=== PATIENT | male | born 1955 | race Caucasian/White ===

== ENCOUNTER 2018-09-07 17:48 | Inpatient (IN) | payer OTHER ==
[2018-09-07] MEDS ORDERED: SODIUM CHLORIDE 0.9% 1,000 ML IV ONE (18:18)
[2018-09-07] MEDS ORDERED: fentaNYL (PF) 50 MCG/ML 2 ML AMP IV ONE (18:23)
[2018-09-07] MEDS ORDERED: LIDOCAINE 1% INJ 10MG/ML (20 ML MDV) SQ ONE (18:23)
[2018-09-07] MEDS ORDERED: BIVALIRUDIN BOLUS 250 MG/50 ML IV ONE (18:33)
[2018-09-07] MEDS ORDERED: BIVALIRUDIN 250 MG in SODIUM CHLORIDE 0.9% 50 ML IV ONE ×2 (18:33→19:03)
[2018-09-07 18:54] LABS: Basophils % (A) 0 %; Eosinophils # (A) 0.1 k/uL (0-0.7); Eosinophils % (A) 0 %; HCT 41.5 % (39.0-53.0); Lymphocytes # (A) 1.2 k/uL (1.0-4.8); Lymphocytes % (A) 7 %; MCH 28.2 pg (25.0-35.0); MCHC 31.4 g/dL (31.0-37.0); Mean Platelet Volume 6.6; Monocytes # (A) 0.7 k/uL (0-1.0); Monocytes % (A) 4 %; Neutrophils # (A) 14.8 k/uL (1.3-7.7); Neutrophils % (A) 87 %; Platelet Count 307 k/uL (150-450); RBC 4.62 m/uL (4.30-5.90); RDW 13.1 % (11.5-15.5)
[2018-09-07 19:03] LABS: ALT 69 U/L (21-72); AST 58 U/L (17-59); Albumin 3.9 g/dL (3.5-5.0); Alkaline Phosphatase 80 U/L (38-126); Anion Gap 10 mmol/L; Blood Urea Nitrogen 24 mg/dL (9-20); Calcium 9.1 mg/dL (8.4-10.2); Carbon Dioxide 24 mmol/L (22-30); Chloride 102 mmol/L (98-107); Glucose 340 mg/dL (74-99); Potassium 4.6 mmol/L (3.5-5.1); Sodium 136 mmol/L (137-145); Total Bilirubin 0.6 mg/dL (0.2-1.3); Total Protein 6.7 g/dL (6.3-8.2)
[2018-09-07] MEDS ORDERED: IOPAMIDOL-370 100ML BTL INJ ONE (19:12)
[2018-09-07] MEDS ORDERED: IOPAMIDOL-370 125ML BTL INJ ONE (19:12)
[2018-09-07 19:15] LABS: Creatine Kinase MB 1.5 ng/mL (0.0-2.4)
[2018-09-07] MEDS ORDERED: IOPAMIDOL-300 50ML BTL INJ ONE (19:16)
[2018-09-07 19:29] LABS: Troponin I 0.035 ng/mL (0.000-0.034)
[2018-09-07] MEDS ORDERED: NITROGLYCERIN SL TABS 0.4 MG TAB SUBLINGUAL PRN (19:39)
[2018-09-07] MEDS ORDERED: RX INFO: IV CONTRAST WAS GIVEN 1 EACH MISC MISCELLANE PRN (19:39)
[2018-09-07] MEDS ORDERED: ATROPINE SULFATE 0.1 MG/ML 10ML SYRINGE IV PRN (19:39)
[2018-09-07] MEDS ORDERED: ZOLPIDEM 5 MG TAB PO PRN (19:39)
[2018-09-07] MEDS ORDERED: MAG HYDROX/AL HYDROX/SIMETH 30 ML CUP PO PRN (19:39)
[2018-09-07] MEDS ORDERED: SODIUM CHLORIDE 0.9% 1,000 ML IV SCH (19:45)
--- NOTE | 2018-09-07 20:09 | CONS ---
CONSULTATION Mr. Multani is a 62-year-old male who was transferred from [facility] with evidence of inferior wall myocardial infarction. Patient has a history of pre diabetes and a history of coronary artery disease according to him by cardiac catheterization about 10 years ago. It has been stable and today has severe jaw discomfort. Came into the emergency room at [facility] and was found to have ST-segment elevation inferiorly with evidence of complete heart block and ventricle rate of 46. The patient on presentation to the cardiac catheterization laboratory at [facility] still has some discomfort although better. He has some dyspnea. He was diaphoretic but no syncope. He denies any prior history of myocardial infarction or congestive heart failure. He has occasional peripheral edema. No PND, no orthopnea. He is reasonably active physically without any difficulty. His coronary risk factors are remarkable for the history of pre diabetes. He is a nonsmoker. No document hypertension. He has a remote history of paroxysmal atrial fibrillation. MEDICATION: At home are none. REVIEW OF SYSTEMS: RESPIRATORY: No documented history of asthma, emphysema or bronchitis. GI: No recent GI bleed. No peptic ulcer disease : No dysuria or hematuria. NERVOUS SYSTEM: No stroke or seizure. PHYSICAL EXAMINATION: He is a 62-year-old male, alert, oriented, no apparent distress. Heart rate running in the 50s. HEAD: Normocephalic. EYES: Sclerae anicteric. NECK: Good carotid upstroke. No bruit. No jugular venous distention. LUNGS: Clear to auscultation anteriorly. HEART: Regular rate and rhythm, S1, S2 with no rub or gallop. ABDOMEN: Soft, nontender. Positive bowel sounds. No megaly. EXTREMITIES: No edema. Intact distal pulses. EKG revealed sinus mechanism with complete heart block and ST-segment elevation in the inferior leads and lead 2, 3, AVF and ST-segment depression in lead in 1 and aVL as well as the anterior precordial leads. IMPRESSION: 1. Acute inferior wall myocardial infarction complicated by complete heart block. 2. Prediabetic state. RECOMMENDATION: I recommend proceeding with emergent cardiac catheterization. The procedure, it 's risks and complication were discussed with the patient who is in full understanding and agreement. Thank you for this consult, will follow with you. CORBYODL / IJN: [id number] / [facility] HOSPITALAakash
[2018-09-07 20:12] LABS: Glucose,Whole Blood 303 mg/dL (75-99)
[2018-09-07] MEDS ORDERED: MELATONIN 3 MG TABLET PO PRN (21:58)
[2018-09-07] MEDS ORDERED: ALPRAZolam 0.25 MG TAB PO PRN (21:58)
[2018-09-07] MEDS ORDERED: ACETAMINOPHEN TAB 500 MG TAB PO PRN (21:58)
[2018-09-07] MEDS ORDERED: HYDROcodone/APAP 5-325MG 1 EACH TAB PO PRN (21:58)
[2018-09-07 23:01] LABS: Glucose,Whole Blood 309 mg/dL (75-99)
[2018-09-07] MEDS: TICAGRELOR 90 MG TAB PO SCH (23:09)
[2018-09-07] MEDS: INSULIN ASPART 100 UNIT/ML 1 ML 10 ML VIAL SQ SCH (23:09)
[2018-09-07] MEDS: ATORVASTATIN 80 MG TAB PO SCH (23:09)
[2018-09-07 23:13] LABS: ALT 67 U/L (21-72); AST 119 U/L (17-59); Albumin 3.8 g/dL (3.5-5.0); Alkaline Phosphatase 69 U/L (38-126); Anion Gap 9 mmol/L; Blood Urea Nitrogen 23 mg/dL (9-20); Calcium 9.2 mg/dL (8.4-10.2); Carbon Dioxide 25 mmol/L (22-30); Chloride 103 mmol/L (98-107); Glucose 317 mg/dL (74-99); Potassium 4.8 mmol/L (3.5-5.1); Sodium 137 mmol/L (137-145); Total Bilirubin 0.6 mg/dL (0.2-1.3); Total Protein 6.4 g/dL (6.3-8.2)
[2018-09-08 06:05] LABS: Basophils % (A) 0 %; Eosinophils % (A) 0 %; HCT 38.5 % (39.0-53.0); Lymphocytes # (A) 1.2 k/uL (1.0-4.8); Lymphocytes % (A) 13 %; MCH 28.4 pg (25.0-35.0); MCHC 31.1 g/dL (31.0-37.0); MCV 91.3 fL (80.0-100.0); Mean Platelet Volume 6.5; Monocytes # (A) 0.7 k/uL (0-1.0); Monocytes % (A) 7 %; Neutrophils # (A) 7.3 k/uL (1.3-7.7); Neutrophils % (A) 77 %; Platelet Count 253 k/uL (150-450); RBC 4.22 m/uL (4.30-5.90); RDW 13.1 % (11.5-15.5); WBC 9.5 k/uL (3.8-10.6)
[2018-09-08 06:18] LABS: Anion Gap 7 mmol/L; Blood Urea Nitrogen 25 mg/dL (9-20); Calcium 9.1 mg/dL (8.4-10.2); Carbon Dioxide 25 mmol/L (22-30); Chloride 106 mmol/L (98-107); Cholesterol 188 mg/dL (<200); Glucose 241 mg/dL (74-99); HDL Cholesterol 58 mg/dL (40-60); LDL Cholesterol,Calculated 119 mg/dL (0-99); Magnesium 2.1 mg/dL (1.6-2.3); Potassium 4.8 mmol/L (3.5-5.1); Sodium 138 mmol/L (137-145); Triglycerides 56 mg/dL (<150)
[2018-09-08 07:31] LABS: Glucose,Whole Blood 222 mg/dL (75-99)
[2018-09-08] MEDS: TICAGRELOR 90 MG TAB PO SCH ×2 (08:14→22:06)
[2018-09-08] MEDS: INSULIN ASPART 100 UNIT/ML 1 ML 10 ML VIAL SQ SCH ×4 (08:14→22:05)
[2018-09-08] MEDS: PANTOPRAZOLE 40 MG TABLET PO SCH (08:14)
[2018-09-08] MEDS: ASPIRIN 81 MG PO SCH (08:14)
--- NOTE | 2018-09-08 09:10 | HP ---
HISTORY AND PHYSICAL DATE OF SERVICE: 09/07/2018. CHIEF COMPLAINT: Jaw pain and as well as headache and inferior myocardial infarction. HISTORY OF PRESENT ILLNESS: This 62-year-old gentleman with a past medical history of apparent atrial fibrillation, and diabetes mellitus was not taking medications at this time. The patient being followed by Dr. Huang in the outpatient setting. Today, the patient was also taking wood to the basement and patient was walking, the patient felt headache, dizzy, patient passed out. The patient was taken to [facility] and was found to have hyperacute inferior wall myocardial infarction with ST-T changes and as well as AV dissociation. Patient transferred to [facility] and Dr. Gold performed a cardiac catheterization and as well as well as stenting of the RCA. Patient being closely monitored in ICU at this time. Sugar is elevated at 303. There is no history of fever, rigors or chills. No history of headache, loss of consciousness, seizures. PAST MEDICAL HISTORY: History of diabetes, apparent atrial fibrillation. MEDICATIONS: Prior to admission: 1. Multivitamins 1 p.o. daily. 2. [place]-3 fish oil 1 p.o. daily. 3. Aspirin 81 mg. ALLERGIES: None. FAMILY HISTORY: History of coronary artery disease in the family. Multiple members in the family including brother. SOCIAL HISTORY: No history of smoking, no history of alcohol intake. REVIEW OF SYSTEMS: ENT: No diminished vision. No diminished hearing. Cardiovascular: As mentioned earlier. RESPIRATORY: As mentioned earlier. GI no nausea or vomiting. : No dysuria. NERVOUS SYSTEM: No numbness or weakness. ALLERGY/IMMUNOLOGY: No asthma or hayfever. MUSCULOSKELETAL: As mentioned earlier. HEMATOLOGY/ONCOLOGY: No history of anemia. ENDOCRINE: As mentioned earlier. CONSTITUTIONAL: As mentioned earlier. Dermatology: Negative. Rheumatology: Negative. Psychiatry: As mentioned earlier. PHYSICAL EXAMINATION: GENERAL: The patient is alert and oriented times three. VITAL SIGNS: Pulse is 80, blood pressure is 103/60. Respiration 21, temperature 98.2, pulse ox 98% on 2 L. HEENT is conjunctivae normal. Oral mucosa moist. Neck is no jugular venous distention. No carotid bruit. No lymph node enlargement. CARDIOVASCULAR SYSTEM: S1, S2 muffled. RESPIRATORY: Breath sounds diminished in the bases. No rhonchi. No crackles. Abdomen is soft, obese, nontender. No mass palpable. LEGS: No edema. No swelling. NERVOUS SYSTEM: Higher functions as mentioned earlier. Moves all 4 limbs. No focal motor or sensory deficits. Lymphatics: No lymph nodes palpable in the neck, axillae or groin. SKIN: No ulcer, rash, bleeding. JOINTS: No active deforming arthropathy. LABS: WBC 17, hemoglobin 13, sodium 136 and BUN is 24. Glucose 340. Troponin 0.035. ASSESSMENT: 1. Acute ST-segment elevation inferior myocardial infarction status post cardiac catheterization and RCA stenting. 2. Complete heart block and AV dissociation present on admission. 3. Hyponatremia. 4. Diabetes mellitus type 2, uncontrolled with hyperglycemia. 5. Increased WBC, possibly reactive. 6. History of atrial fibrillation. RECOMMENDATIONS AND DISCUSSION: In this 62-year-old gentleman who presented with multiple complex medical issues, we will monitor the patient closely, continue the current medications, management and symptomatic treatment. We will closely follow with Cardiology, beta blockers, dual antiplatelet treatment. Monitor Accu-Cheks a.c. and q.h.s. Otherwise, proton pump inhibitors. DVT prophylaxis. Prognosis guarded because of multiple complex medical issues. Also recommend the patient follow with Dr. Huang closely in the outpatient setting. Further recommendations to follow. A copy of dictation being forwarded to Dr. Huang who is the primary physician. Closely follow with Cardiology. Overall prognosis guarded. See orders for details. MMODL / IJN: [id number] /
--- NOTE | 2018-09-08 09:48 | CC ---
CARDIAC CATHETERIZATION REPORT INDICATIONS: Mr. Multani is a 62-year-old male who presented to the emergency room through this hospital with an acute inferior myocardial infarction and complete heart block. He was transferred to [facility] to undergo coronary angiography. The procedure, risks and complications were discussed with the patient who is in full understanding and agreement. PROCEDURE: Patient was brought to pathology laboratory aides teacher. He was draped and prepped in customary fashion. He received sedation in the form of fentanyl and Benadryl. After achieving moderate conscious sedated state, using Xylocaine anesthesia and Seldinger technique, a 6-Maltese sheath was introduced in the right femoral artery and a 6-Maltese sheath in the right femoral vein. A 5-Maltese temporary pacemaker was introduced, positioned in place. Pacing parameters were obtained. Following that, selective right coronary angiography was performed using 6-Maltese FR4 guiding catheter. After performing angioplasty and stenting, images of the left coronary system using a 6-Maltese left Deirdre catheter were performed. Following that, 6-Maltese tight pigtail catheter was introduced in the left ventricle and a 30 degree NAIR view of the left ventricle was obtained. Following that, catheter and sheath were removed. Hemostasis was obtained with deployment of an Angio-Seal. Venous sheath was sutured in place. The temporary pacemaker was removed. There was no immediate complication. FINDINGS: 1. LEFT MAIN: This is a short size vessel, bifurcating in left circumflex and left anterior descending artery. Left main coronary artery has no evidence of high- grade stenosis. 2. LEFT ANTERIOR DESCENDING ARTERY: This is a large-sized vessel, reaching to the apex, with a wraparound the apex segment. The left anterior descending artery in the mid segment has a 90% stenosis. The rest of the vessel has no high-grade stenosis. 3. LEFT CIRCUMFLEX: This is a nondominant vessel, giving rise to a large obtuse marginal branch. The obtuse marginal branch in mid segment has an 80% stenosis. The rest of the vessel has no high-grade stenosis. 4. RIGHT CORONARY ARTERY: This vessel is totally occluded proximally with no antegrade flow. 5. LEFT VENTRICULOGRAM: Left ventriculogram was performed in 30 degree NAIR view and revealed mild inferior wall hypokinesis. The ejection fraction was estimated at 45% to 50%. There was no significant mitral regurgitation. HEMODYNAMICS: There was no gradient across the aortic valve. The left ventricle end-diastolic pressure was 60 mmHg. CONCLUSION: 1. Acutely occluded proximal right coronary artery. 2. Significant disease in the LAD and the left circumflex. 3. Minimally impaired left ventricular systolic function. RECOMMENDATIONS: In view of finding of anatomy, recommend proceeding with angioplasty and stenting of the right coronary artery. The procedure as well as the risks and complications were discussed with the patient who was in full understanding and agreement. MMJERRI / MONROE: [id number] /
--- NOTE | 2018-09-08 09:55 | PTCA ---
PERCUTANEOUSTRANS CORORONARY ANGIOGRAPHY INDICATIONS: Mr. Multani is a 62-year-old male who presented with an acute inferior wall myocardial infarction to [facility], complicated by complete heart block. He was brought emergently to undergo coronary angiography and angioplasty and angioplasty and stenting. Coronary angiography was performed and recommendations made regarding angioplasty and stenting. The procedure as well as the risks and complications were discussed with the patient who was in full understanding and agreement. PROCEDURE: Using 6-Turkmen FR4 guiding catheter and after cannulating the right coronary ostium, a 0.014 balanced medium weight J-wire was advanced across the lesion. A 2.5 x 12 mm Trek balloon attempted to cross the total occlusion were unsuccessful. At that point, the wire was exchanged to a Whisper 0.014 J wire which was successful in crossing the lesion after positioning the wire distally. The balloon was advanced and 2 inflations at 8 atmospheres was done. Following that, the balloon was removed and a 3.5 x 50 mm Xience Mora stent was deployed, post-dilated 16 atmospheres. Following that the balloon was removed and a 4.0 x 12 mm NC Trek balloon was advanced and one inflation at 12 atmospheres was done. Following that the balloon was removed and a 3.0 x 18 mm Xience Mora stent was advanced to the distal lesion, deployed, and postdilated 16 atmospheres. After the last inflation, after appropriate wait, the balloon and the guidewire were withdrawn back in the guiding catheter. Images were obtained and repeated. Those images revealed stable successful stenting. At that point, angiography of the left coronary system as well as left ventriculogram was performed. Following that, catheter and sheath were removed. Hemostasis was obtained with deployment of an Angio-Seal. The complete heart block, resolved. The temporary pacemaker was removed and the venous sheath was sutured in place. At the end procedure, his symptoms had resolved. His EKG changes have improved. Of note, the patient received Angiomax per protocol as well as oral loading dose of Brilinta in the emergency room. RESULTS: 1. Successful stenting of the proximal right coronary artery with reduction of stenosis from 100% to 0%. 2. Successful stenting of the distal right coronary artery with reduction of stenosis from 70% to 0%. RECOMMENDATIONS: Patient will be continued on aspirin, Brilinta, and statin. Depending on his blood pressure and heart rate, VITALIY inhibitor and beta blockers will be added to his regimen. He will be evaluated to undergo staged stenting our staged revascularization of his LAD and the left circumflex. Those findings and recommendations were discussed with the patient his family who are in full understanding and agreement. DURATION OF PROCEDURE: 61 minutes. CK / MONROE: [id number] /
[2018-09-08 12:03] LABS: Glucose,Whole Blood 214 mg/dL (75-99)
[2018-09-08] MEDS: MULTIVITAMINS, THERA 1 EACH TAB PO SCH (12:42)
[2018-09-08] MEDS: SODIUM CHLORIDE 0.9% 1,000 ML IV SCH (15:00)
[2018-09-08] MEDS ORDERED: INSULIN DETEMIR 100 UNIT/ML 10 ML VIAL SQ SCH (15:00)
[2018-09-08] MEDS: INSULIN DETEMIR 100 UNIT/ML 10 ML VIAL SQ SCH (17:07)
[2018-09-08 17:14] LABS: Glucose,Whole Blood 177 mg/dL (75-99)
--- NOTE | 2018-09-08 19:14 | XR ---
EXAMINATION TYPE: XR chest 1V portable DATE OF EXAM: 09/08/2018 COMPARISON: NONE HISTORY: Heart failure chest pain TECHNIQUE: Single frontal view of the chest is obtained. FINDINGS: Heart and mediastinum are normal. Lungs are clear. Diaphragm is normal. There are chest le ads. Bony thorax is intact. IMPRESSION: No active cardiopulmonary disease. No heart failure.
--- NOTE | 2018-09-08 19:16 | PN ---
PROGRESS NOTE DATE OF SERVICE: 09/08/2018 This 62-year-old gentleman admitted with acute ST segment elevation myocardial infarction. The patient being closely monitored. Patient had cardiac cath and stenting of the RCA. Further stenting has been planned by the Cardiology soon. No chest pain. No palpitations. Patient closely monitored in ICU. Blood sugars elevated. PAST MEDICAL HISTORY: Reviewed. REVIEW OF SYSTEMS: CARDIOVASCULAR: As mentioned earlier. RESPIRATORY: As mentioned earlier. GI no nausea or vomiting. no dysuria. NERVOUS SYSTEM: No numbness, weakness. CURRENT MEDICATIONS ARE: Reviewed and include: 1. Tylenol 500 mg q.6h. 2. [place] 5 mg q.6h p.r.n. 3. Maalox 30 mL q.4 p.r.n. 4. Xanax 0.5 t.i.d. 5. Aspirin 81 mg. 6. Lipitor 80 mg q.h.s. 7. Atropine p.r.n. 8. Levemir 15 units daily. 9. Melatonin 3 mg p.r.n. 10.Multivitamins 1 p.o. daily. 11.Nitrostat p.r.n. 12.Protonix 40 mg. 13.Brilinta 90 mg b.i.d. 14.Ambien 5 mg q.h.s. p.r.n. PHYSICAL EXAMINATION: GENERAL: Alert, oriented x3. VITAL SIGNS: Pulse 70, blood pressure is 130/64. Respiration 34, temperature is 98 degrees, pulse ox 94% on room air. HEENT: Conjunctivae normal. NECK: No jugular venous distention. CARDIOVASCULAR: S1, S2 muffled. RESPIRATORY: Breath sounds diminished in the bases. A few scattered rhonchi. ABDOMEN: Soft, nontender. LEGS: No edema, no swelling. CENTRAL NERVOUS SYSTEM: No focal deficits. LABS: WBC 9.1, hemoglobin is 12, Accu-Cheks 222, 214. Troponin 63.7. LDL noted. ASSESSMENT: 1. Acute ST segment elevation inferior myocardial infarction, status post cardiac catheterization, RCA stenting. 2. Complete heart block with AV dissociation present on admission. 3. Hyponatremia. 4. Diabetes mellitus type 2, uncontrolled with hyperglycemia. 5. Increased WBC possibly reactive. 6. History of atrial fibrillation. RECOMMENDATIONS AND DISCUSSION: Recommend to continue current medications, monitor and symptomatic treatment. Otherwise, at this time, I recommend continue with antiplatelet agents. Continue with beta blockers. Monitor blood sugars closely. Levemir 15 units subcu daily and Accu- Cheks a.c. and q.h.s. importance of monitor the blood sugars also impressed with the patient. Otherwise, continue rest of medications. Closely follow with Cardiology. Further stenting with Cardiology. Prognosis guarded. Further recommendations to follow. I would also recommend incentive spirometry and also portable chest x- ray also to complete the workup. Further recommendations to follow. MMODL / IJN: [id number] / MTDD
[2018-09-08] MEDS: ATORVASTATIN 80 MG TAB PO SCH (22:06)
[2018-09-08 22:11] LABS: Glucose,Whole Blood 207 mg/dL (75-99)
[2018-09-09 04:50] LABS: Basophils % (A) 0 %; Eosinophils # (A) 0.1 k/uL (0-0.7); Eosinophils % (A) 1 %; HGB 11.7 gm/dL (13.0-17.5); Lymphocytes # (A) 1.5 k/uL (1.0-4.8); Lymphocytes % (A) 18 %; MCH 28.3 pg (25.0-35.0); MCHC 31.6 g/dL (31.0-37.0); MCV 89.6 fL (80.0-100.0); Mean Platelet Volume 6.9; Monocytes # (A) 0.6 k/uL (0-1.0); Monocytes % (A) 7 %; Neutrophils % (A) 72 %; Platelet Count 213 k/uL (150-450); RBC 4.13 m/uL (4.30-5.90); RDW 13.1 % (11.5-15.5); WBC 8.3 k/uL (3.8-10.6)
[2018-09-09 05:04] LABS: Anion Gap 4 mmol/L; Blood Urea Nitrogen 20 mg/dL (9-20); Calcium 8.7 mg/dL (8.4-10.2); Carbon Dioxide 26 mmol/L (22-30); Chloride 108 mmol/L (98-107); Glucose 179 mg/dL (74-99); Sodium 138 mmol/L (137-145)
[2018-09-09] MEDS: SODIUM CHLORIDE 0.9% 1,000 ML IV SCH (07:06)
[2018-09-09] MEDS: INSULIN ASPART 100 UNIT/ML 1 ML 10 ML VIAL SQ SCH ×4 (07:10→20:50)
[2018-09-09 07:13] LABS: Glucose,Whole Blood 173 mg/dL (75-99)
[2018-09-09] MEDS ORDERED: SODIUM CHLORIDE 0.9% 1,000 ML in EMPTY BAG 1 BAG IV ONE (07:25)
[2018-09-09] MEDS ORDERED: ALPRAZolam 0.25 MG TAB PO PRN (07:25)
[2018-09-09] MEDS ORDERED: ALPRAZolam 0.5 MG TAB PO PRN (07:25)
[2018-09-09] MEDS ORDERED: NITROGLYCERIN SL TABS 0.4 MG TAB SUBLINGUAL PRN (07:25)
[2018-09-09] MEDS: ASPIRIN 81 MG PO SCH ×2 (07:39→09:22)
[2018-09-09] MEDS: ATORVASTATIN 80 MG TAB PO SCH ×2 (07:39→20:45)
[2018-09-09] MEDS: TICAGRELOR 90 MG TAB PO SCH ×2 (09:22→20:46)
[2018-09-09] MEDS: PANTOPRAZOLE 40 MG TABLET PO SCH (09:22)
[2018-09-09] MEDS: METOPROLOL TARTRATE 25 MG TAB PO SCH ×2 (09:23→20:46)
[2018-09-09] MEDS: INSULIN DETEMIR 100 UNIT/ML 10 ML VIAL SQ SCH (09:28)
[2018-09-09 11:44] LABS: Hemoglobin A1C 10.9 % (4.0-6.0)
[2018-09-09 12:21] LABS: Glucose,Whole Blood 191 mg/dL (75-99)
[2018-09-09] MEDS: MULTIVITAMINS, THERA 1 EACH TAB PO SCH (13:11)
--- NOTE | 2018-09-09 15:07 | PN ---
PROGRESS NOTE Raulito is admitted to hospital with acute inferior wall myocardial infarction. This morning he is doing well. Vital signs are stable. There is no jugular venous distention. Chest exam reveals good air entry bilaterally. Heart exam reveals first and second heart sounds. No gallop. Exam of extremities did not reveal any edema. Labs show a hemoglobin of 11.7, platelet count is 213. Trop is elevated at 61, creatinine 0.78. The patient is currently on aspirin, Lipitor, Lopressor and Brilinta. ASSESSMENT: Acute inferior wall myocardial infarction status post catheterization and angioplasty of [place] right coronary artery. The patient also has significant disease in the LAD and circumflex coronary artery. The patient will undergo angioplasty with stenting of LAD tomorrow. He is currently on optimal medical therapy. He is stable to be transferred to [facility]. MMODL / IJN: [id number] /
[2018-09-09 15:21] VITALS: BMI 33.6
--- NOTE | 2018-09-09 16:07 | PN ---
PROGRESS NOTE This patient's electronic medical records, charts, lab tests, and vital signs reviewed. Patient is status post inferior wall myocardial infarction with a stent to the RCA. Patient also has a significant disease in the LAD and circumflex coronary artery. The patient is comfortable. His heart rate is 50 beats per minute blood pressure is 102/74 mmHg. First and second heart sounds are normal. Lungs are clinically clear to auscultation and percussion. The patient's maximum troponin was 61. Electrolytes were normal. FINAL IMPRESSION: This patient is status post inferior wall myocardial infarction. He will have echocardiogram tomorrow. We will give him IV fluids at 75 mL/hour. Subsequently discussed with Dr. Gold regarding the stent to the LAD and circumflex coronary artery. MMODL / IJN: [id number] /
[2018-09-09 17:11] LABS: Glucose,Whole Blood 196 mg/dL (75-99)
[2018-09-09 17:12] LABS: Potassium 4.3 mmol/L (3.5-5.1)
[2018-09-09 17:13] LABS: Magnesium 1.8 mg/dL (1.6-2.3)
--- NOTE | 2018-09-09 19:17 | PN ---
PROGRESS NOTE DATE OF SERVICE: 09/09/2018 62-year-old gentleman who was admitted after acute ST segment myocardial infarction, underwent cardiac catheterization, stenting of the RCA. The patient is awaiting for the procedure by Cardiology. No chest pain. No palpitations. No fever. EXAM: Alert and oriented times three. Pulse 70. Blood pressure 130/70, respiratory 14, temperature 98.1, pulse ox 96% on room air. HEENT: Conjunctivae normal. NECK: No jugular venous distention. Cardiovascular: S1, S2 muffled. RESPIRATIONS: Breath sounds diminished at the bases. No rhonchi. No crackles. Abdomen is soft, nontender. Legs are no edema. No swelling. CENTRAL NERVOUS SYSTEM: No focal deficits. LAB STUDIES: WBC 8.2, hemoglobin 11.7, glucose 196. ASSESSMENT: 1. Acute ST-segment elevation inferior wall myocardial infarction status post cardiac catheterization, RCA stenting. 2. Complete heart block with AV dissociation, present on admission. 3. Hyponatremia. 4. Diabetes mellitus type 2, uncontrolled with hyperglycemia. 5. Increased WBC, possibly reactive. 6. History of atrial fibrillation. RECOMMENDATIONS AND DISCUSSION: Recommend to continue current medications. Continue with monitoring, symptomatic treatment. Otherwise, at this time, I would continue with antiplatelet agents. I would increase the Levemir to 20 units and we will continue to monitor. Hemoglobin A1c is elevated up to 10. The patient may have to be on a short course of insulin after discharge. We will closely follow with Cardiology with further procedures. Further recommendations to follow. CK / DARINN: [id number] /
[2018-09-09 21:00] LABS: Glucose,Whole Blood 158 mg/dL (75-99)
[2018-09-10 05:16] LABS: Basophils % (A) 0 %; Eosinophils # (A) 0.1 k/uL (0-0.7); Eosinophils % (A) 1 %; HCT 35.9 % (39.0-53.0); HGB 12.1 gm/dL (13.0-17.5); Lymphocytes # (A) 1.5 k/uL (1.0-4.8); Lymphocytes % (A) 18 %; MCH 29.8 pg (25.0-35.0); MCHC 33.9 g/dL (31.0-37.0); MCV 88.1 fL (80.0-100.0); Mean Platelet Volume 6.8; Monocytes # (A) 0.6 k/uL (0-1.0); Monocytes % (A) 7 %; Neutrophils # (A) 6.1 k/uL (1.3-7.7); Neutrophils % (A) 71 %; Platelet Count 198 k/uL (150-450); RBC 4.07 m/uL (4.30-5.90); RDW 13.2 % (11.5-15.5); WBC 8.6 k/uL (3.8-10.6)
[2018-09-10 05:22] LABS: Prothrombin Time 10.6 sec (9.0-12.0)
[2018-09-10 05:28] LABS: Anion Gap 5 mmol/L; Blood Urea Nitrogen 17 mg/dL (9-20); Calcium 8.7 mg/dL (8.4-10.2); Carbon Dioxide 26 mmol/L (22-30); Chloride 108 mmol/L (98-107); Glucose 155 mg/dL (74-99); Potassium 4.1 mmol/L (3.5-5.1); Sodium 139 mmol/L (137-145)
[2018-09-10] MEDS ORDERED: ASPIRIN 81 MG PO ONE (06:00)
[2018-09-10] MEDS ORDERED: ATORVASTATIN 80 MG TAB PO ONE (06:00)
[2018-09-10] MEDS: PANTOPRAZOLE 40 MG TABLET PO SCH (06:32)
[2018-09-10 07:17] LABS: Glucose,Whole Blood 170 mg/dL (75-99)
[2018-09-10] MEDS: INSULIN ASPART 100 UNIT/ML 1 ML 10 ML VIAL SQ SCH ×4 (08:18→20:56)
[2018-09-10] MEDS: TICAGRELOR 90 MG TAB PO SCH ×2 (08:36→21:00)
[2018-09-10] MEDS: METOPROLOL TARTRATE 25 MG TAB PO SCH ×2 (08:36→20:57)
[2018-09-10] MEDS ORDERED: INSULIN DETEMIR 100 UNIT/ML 10 ML VIAL SQ SCH (09:00)
[2018-09-10] MEDS ORDERED: INSULIN DETEMIR 100 UNIT/ML 10 ML VIAL SQ ONE (10:07)
[2018-09-10 12:04] LABS: Glucose,Whole Blood 115 mg/dL (75-99)
[2018-09-10] MEDS ORDERED: SODIUM CHLORIDE 0.9% 1,000 ML IV ONE (12:15)
[2018-09-10] MEDS ORDERED: fentaNYL (PF) 50 MCG/ML 2 ML AMP IVP ONE (12:29)
[2018-09-10] MEDS ORDERED: LIDOCAINE 1% INJ 10MG/ML (20 ML MDV) SQ ONE (12:33)
[2018-09-10] MEDS ORDERED: VERAPAMIL SYRINGE (5 MG/10 ML) INTRAARTER ONE (12:37)
[2018-09-10] MEDS ORDERED: BIVALIRUDIN BOLUS 250 MG/50 ML IV ONE (12:38)
[2018-09-10] MEDS ORDERED: BIVALIRUDIN 250 MG in SODIUM CHLORIDE 0.9% 50 ML IV ONE ×2 (12:39→13:06)
[2018-09-10] MEDS ORDERED: IOPAMIDOL-370 125ML BTL INJ ONE (12:53)
[2018-09-10] MEDS ORDERED: IOPAMIDOL-370 100ML BTL INJ ONE ×2 (13:19→13:39)
[2018-09-10] MEDS ORDERED: ATROPINE SULFATE 0.1 MG/ML 10ML SYRINGE IV PRN (13:50)
[2018-09-10] MEDS ORDERED: RX INFO: IV CONTRAST WAS GIVEN 1 EACH MISC MISCELLANE PRN (13:50)
[2018-09-10] MEDS ORDERED: ZOLPIDEM 5 MG TAB PO PRN (13:50)
[2018-09-10] MEDS ORDERED: MAG HYDROX/AL HYDROX/SIMETH 30 ML CUP PO PRN (13:50)
[2018-09-10] MEDS ORDERED: NITROGLYCERIN SL TABS 0.4 MG TAB SUBLINGUAL PRN (13:50)
[2018-09-10] MEDS ORDERED: SODIUM CHLORIDE 0.9% 1,000 ML IV SCH (14:00)
--- NOTE | 2018-09-10 15:33 | P.PN ---
Subjective This is a 62 -year-old pleasant gentleman admitted for his elevation microinfarction involving the inferior wall patient underwent stenting of RCA and the patient is significant disease in the circumflex as well as the LAD patient underwent staged intervention to LAD today patient probably will be discharged tomorrow clinically doing well. Constitutional: Denied any fatigue denied any fever. Cardio vascular: denied any chest pain, palpitations Gastrointestinal denied any nausea vomiting Pulmonary: Denied any shortness of breath cough Neurologic denied any new focal deficits All inpatient medications were reviewed and appropriate changes in these medications as dictated in the interval history and assessment and plan. Objective - Vital Signs Vital signs: Vital Signs Temp 98.3 F 09/10/18 12:00 Pulse 64 09/10/18 15:05 Resp 47 H 09/10/18 15:05 BP 151/80 09/10/18 15:05 Pulse Ox 99 09/10/18 13:50 Intake & Output 09/09/18 09/10/18 09/10/18 18:59 06:59 18:59 Intake Total 1500 250 156.6 Output Total 400 270 Balance 1500 -150 -113.4 Weight 122 kg 119.3 kg Intake: IV 300 156.6 Sodium Chloride 0.9% 1, 300 000 ml @ 75 mls/hr IV . [id number] CORNEL Rx#:[id number] Oral 1200 250 Output: Urine 400 270 Other: Voiding Method Toilet Toilet Urinal # Voids 1 1 1 - Exam PHYSICAL EXAMINATION: GENERAL: The patient is alert and oriented x3, not in any acute distress. Well developed, well nourished. HEENT: Pupils are round and equally reacting to light. EOMI. No scleral icterus. No conjunctival pallor. Normocephalic, atraumatic. No pharyngeal erythema. No thyromegaly. CARDIOVASCULAR: S1 and S2 present. No murmurs, rubs, or gallops. PULMONARY: Chest is clear to auscultation, no wheezing or crackles. ABDOMEN: Soft, nontender, nondistended, normoactive bowel sounds. No palpable organomegaly. MUSCULOSKELETAL: No joint swelling or deformity. EXTREMITIES: No cyanosis, clubbing, or pedal edema. NEUROLOGICAL: Gross neurological examination did not reveal any focal deficits. SKIN: No rashes. - Labs CBC & Chem 7: 09/10/18 04:55 09/10/18 04:55 Labs: Abnormal Lab Results - Last 24 Hours (Table) 09/09/18 09/09/18 09/10/18 Range/Units 16:59 20:48 04:55 RBC 4.07 L (4.30-5.90) m/uL Hgb 12.1 L (13.0-17.5) gm/dL Hct 35.9 L (39.0-53.0) % Chloride (98-107) mmol/L Glucose (74-99) mg/dL POC Glucose (mg/dL) 196 H 158 H (75-99) mg/dL 09/10/18 09/10/18 09/10/18 Range/Units 04:55 07:05 11:52 RBC (4.30-5.90) m/uL Hgb (13.0-17.5) gm/dL Hct (39.0-53.0) % Chloride 108 H (98-107) mmol/L Glucose 155 H (74-99) mg/dL POC Glucose (mg/dL) 170 H 115 H (75-99) mg/dL 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 which improved now -Leukocytosis reactive secondary to microinfarction -Type 2 diabetes mellitus -
--- NOTE | 2018-09-10 16:39 | PTCA ---
PERCUTANEOUSTRANS CORORONARY ANGIOGRAPHY Mr. Multani 62-year-old male with a who presented 2 days ago with an acute inferior myocardial infarction complicated by complete heart block. He underwent stenting of the right coronary artery. At that time, he was found to have significant obstructive disease involving the LAD and the left circumflex. In view of that, recommendation made regarding coronary angioplasty and stenting. The procedure as well as risks and complication were discussed with the patient who is in full understanding and agreement. DESCRIPTION OF PROCEDURE: Patient was brought to denture laboratory technician in a fasting semisedated state, after receiving fentanyl and Benadryl and achieving moderate conscious sedated state, using Xylocaine anesthesia and Seldinger technique, a 6-Chinese sheath was introduced in the right radial artery. Following that, a 6-Chinese EBU 3.75 guiding catheter introduced into the system. After cannulating the left main, a 0.014 balanced medium weight J- wire was advanced and position in the distal left circumflex. Cannulating the LAD was quite difficult because of the angulation of the takeoff, but subsequently it was done using a 0.014 Whisper J-wire and positioned distally. Following that, a 2.5 x 12 mm Trek balloon was advanced into the mid LAD and one inflation was done at 8 atmospheres. Following that, the balloon was removed and a 3.5 x 15 mm Xience Mora stent was deployed and post dilated at 14 atmospheres. After appropriate wait, the balloon was withdrawn back in the guiding catheter. Subsequently, a 3.0 x 15 mm Xience Mora stent was advanced into the mid left circumflex, deployed and post dilated at 16 atmospheres. After the last inflation, after appropriate wait, the balloon and the guidewire were withdrawn back in the catheter. Images were obtained, repeated. Those images reveal stable successful stenting. At that point, the guiding catheter, the balloon and the guidewire were removed. The sheath was removed. Hemostasis was obtained with deployment of a TR band. There was no immediate complications. Patient was returned to his room in stable condition. Of note, the patient received Angiomax per protocol and was continued on Brilinta. He had no chest discomfort. He had EKG changes with the inflations of the LAD. RESULTS: 1. Successful stenting of the mid LAD with reduction of stenosis from 95% to 0%. 2. Successful stenting of the mid left circumflex with reduction of stenosis from 70% to 0%. RECOMMENDATION: Patient be continued on aspirin, Brilinta, beta blockers, tom inhibitors and statin. The importance of dual antiplatelet treatment was discussed with the patient who is in full understanding and agreement. Duration of the procedure: 63 minutes. CK / MONROE: [id number] / MTDD
[2018-09-10] MEDS: MULTIVITAMINS, THERA 1 EACH TAB PO SCH (16:58)
[2018-09-10 17:00] LABS: Glucose,Whole Blood 110 mg/dL (75-99)
--- NOTE | 2018-09-10 18:41 | ECHOF ---
Referral Reason:sc MEASUREMENTS -------- HEIGHT: 188.0 cm WEIGHT: 121.6 kg BP: 95/65 RVIDd: 2.6 cm (< 3.3) IVSd: 1.3 cm (0.6 - 1.1) LVIDd: 5.3 cm (3.9 - 5.3) LVPWd: 1.4 cm (0.6 - 1.1) IVSs: 1.5 cm LVIDs: 4.2 cm LVPWs: 1.5 cm LA Diam: 3.7 cm (2.7 - 3.8) LAESV Index (A-L): 20.68 ml/m Ao Diam: 3.7 cm (2.0 - 3.7) AV Cusp: 2.1 cm (1.5 - 2.6) LA Diam: 4.2 cm (2.7 - 3.8) MV EXCURSION: 23.601 mm (> 18.000) MV EF SLOPE: 148 mm/s (70 - 150) EPSS: 0.5 cm MV E Scott: 0.80 m/s MV DecT: 205 ms MV A Scott: 0.71 m/s MV E/A Ratio: 1.12 RAP: 5.00 mmHg RVSP: 16.18 mmHg FINDINGS -------- Sinus rhythm. This was a technically adequate study. Morbid Obesity The left ventricular size is normal. There is mild concentric left ventricular hypertrophy. Overa ll left ventricular systolic function is low-normal with, an EF between 50 - 55 %. Inferior Hypokin esis The right ventricle is normal in size. The left atrial size is normal. Normal LA size by volume 22+/-6 ml/m2. The right atrial size is normal. The aortic valve is trileaflet, and appears structurally normal. No aortic stenosis or regurgitation. Mild mitral regurgitation is present. Mild tricuspid regurgitation present. There is no evidence of pulmonary hypertension. The right v entricular systolic pressure, as measured by Doppler, is 16.18mmHg. There is no pulmonic regurgitation present. The aortic root size is normal. There is no pericardial effusion. CONCLUSIONS -------- 1. The left ventricular size is normal. 2. There is mild concentric left ventricular hypertrophy. 3. Overall left ventricular systolic function is low-normal with, an EF between 50 - 55 %. 4. Inferior Hypokinesis 5. The right ventricle is normal in size. 6. The left atrial size is normal. 7. Normal LA size by volume 22+/-6 ml/m2. 8. The right atrial size is normal. 9. The aortic valve is trileaflet, and appears structurally normal. No aortic stenosis or regurgitati on. 10. Mild mitral regurgitation is present. 11. Mild tricuspid regurgitation present. 12. There is no evidence of pulmonary hypertension. 13. The right ventricular systolic pressure, as measured by Doppler, is 16.18mmHg. 14. There is no pulmonic regurgitation present. 15. The aortic root size is normal. 16. There is no pericardial effusion. RUBBER CURER: Gissel Ley RDCS
[2018-09-10 20:35] LABS: Glucose,Whole Blood 171 mg/dL (75-99)
[2018-09-11 05:36] LABS: Basophils % (A) 0 %; Eosinophils # (A) 0.1 k/uL (0-0.7); Eosinophils % (A) 1 %; HCT 37.1 % (39.0-53.0); HGB 12.1 gm/dL (13.0-17.5); Lymphocytes # (A) 1.3 k/uL (1.0-4.8); Lymphocytes % (A) 15 %; MCHC 32.7 g/dL (31.0-37.0); MCV 88.6 fL (80.0-100.0); Mean Platelet Volume 6.9; Monocytes # (A) 0.5 k/uL (0-1.0); Monocytes % (A) 6 %; Neutrophils # (A) 6.9 k/uL (1.3-7.7); Neutrophils % (A) 76 %; Platelet Count 215 k/uL (150-450); RBC 4.19 m/uL (4.30-5.90); RDW 13.2 % (11.5-15.5); WBC 9.1 k/uL (3.8-10.6)
[2018-09-11 05:58] LABS: Anion Gap 5 mmol/L; Blood Urea Nitrogen 17 mg/dL (9-20); Carbon Dioxide 25 mmol/L (22-30); Chloride 107 mmol/L (98-107); Glucose 148 mg/dL (74-99); Sodium 137 mmol/L (137-145)
[2018-09-11 07:11] LABS: Glucose,Whole Blood 140 mg/dL (75-99)
[2018-09-11] MEDS ORDERED: INSULIN DETEMIR 100 UNIT/ML 10 ML VIAL SQ SCH (09:00)
[2018-09-11] MEDS ORDERED: LISINOPRIL 5 MG TAB PO SCH (09:00)
[2018-09-11] MEDS: INSULIN ASPART 100 UNIT/ML 1 ML 10 ML VIAL SQ SCH ×2 (09:51→12:43)
[2018-09-11 09:55] LABS: Glucose,Whole Blood 267 mg/dL (75-99)
[2018-09-11 09:58] VITALS: RESP 16
[2018-09-11] MEDS: ASPIRIN 81 MG PO SCH (10:00)
[2018-09-11] MEDS: PANTOPRAZOLE 40 MG TABLET PO SCH (10:00)
[2018-09-11] MEDS: TICAGRELOR 90 MG TAB PO SCH (10:00)
[2018-09-11] MEDS ORDERED: ATENOLOL 25 MG TAB PO SCH (11:17)
--- NOTE | 2018-09-11 11:43 | PN ---
PROGRESS NOTE Raulito is a 62-year-old gentleman who was admitted to hospital with acute inferior wall myocardial infarction and underwent multivessel angioplasty. This morning patient is doing well and is free of symptoms and is ready to be discharged home. On exam, he is comfortable at rest. Vital signs are stable. There is no jugular venous distention. Chest exam reveals good air entry bilaterally. Heart exam reveals first and second heart sounds. No gallop. Exam of the extremities did not reveal any edema. Peripheral pulses are felt. Echo shows that the LV function is normal at 50%. Lab showed that the hemoglobin is 12.1, platelet count is 215. Creatinine is 0.75. Potassium is 4. ASSESSMENT: Acute ischemic syndrome, status post multivessel angioplasty. The patient is doing well. He does not want to take metoprolol. Hence, I am putting him on Tenormin 25 mg daily on discharge. He will go home on aspirin, Brilinta, Zestril, and Tenormin 25 mg daily. MMODL / IJN: [id number] /
[2018-09-11] MEDS: MULTIVITAMINS, THERA 1 EACH TAB PO SCH (12:15)
[2018-09-11 12:20] VITALS: BP 134/81; PULSE 73; TEMP 98.6
[2018-09-11 12:22] LABS: Glucose,Whole Blood 172 mg/dL (75-99)
--- NOTE | 2018-09-11 12:43 | P.DS ---
Providers Date of admission: 09/07/18 17:58 Attending physician: Kamlesh Cheng MD Consults: 09/07/18 19:39 Consult Physician Routine Consulting Provider: Cardiology Jory Consult Reason/Comments: Post Interventional patient Do you want consulting provider notified?: Already Contacted 09/10/18 13:50 Consult Physician Routine Consulting Provider: Cardiology Jory Consult Reason/Comments: Post Interventional patient Do you want consulting provider notified?: Already Contacted Primary care physician: [facility] Course: This is a 62 -year-old pleasant gentleman admitted for his elevation microinfarction involving the inferior wall patient underwent stenting of RCA and the patient is significant disease in the circumflex as well as the LAD patient underwent staged intervention to LAD today patient probably will be discharged tomorrow clinically doing well. 09/11/2018 Patient is being discharged today patient is in a diagnosed diabetic for which we am discharging him on Lantus 20 units at nighttime with CBGs twice a day before breakfast and before bed. Patient is not requiring much of insulin pre- meal because of which I'm not discharging 1 any pre-meal insulin probably as an outpatient may require some oral hypoglycemic agents.his hemoglobin A1c here is about 10. Patient's echo cardiac exam showed normal ejection fraction. PHYSICAL EXAMINATION: GENERAL: The patient is alert and oriented x3, not in any acute distress. Well developed, well nourished. HEENT: Pupils are round and equally reacting to light. EOMI. No scleral icterus. No conjunctival pallor. Normocephalic, atraumatic. No pharyngeal erythema. No thyromegaly. CARDIOVASCULAR: S1 and S2 present. No murmurs, rubs, or gallops. PULMONARY: Chest is clear to auscultation, no wheezing or crackles. ABDOMEN: Soft, nontender, nondistended, normoactive bowel sounds. No palpable organomegaly. MUSCULOSKELETAL: No joint swelling or deformity. EXTREMITIES: No cyanosis, clubbing, or pedal edema. NEUROLOGICAL: Gross neurological examination did not reveal any focal deficits. SKIN: No rashes. 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 which improved now -Leukocytosis reactive secondary to myocardial infarction -Type 2 diabetes mellitus: Newly diagnosed - Plan - Discharge Summary New Discharge Prescriptions: No Action Multivitamins, Thera [Multivitamin (formulary)] 1 tab PO DAILY Aspirin EC [Ecotrin Low Dose] 81 mg PO DAILY Alex Red Fish Oil(Unknown Dose) 1 cap PO DAILY Discharge Medication List Aspirin EC [Ecotrin Low Dose] 81 mg PO DAILY 09/07/18 [History] Alex Red Fish Oil(Unknown Dose) 1 cap PO DAILY 09/07/18 [History] Multivitamins, Thera [Multivitamin (formulary)] 1 tab PO DAILY 09/07/18 [History ] Follow up Appointment(s)/Referral(s): Angie Gold MD [STAFF PHYSICIAN] - 2 Weeks Activity/Diet/Wound Care/Special Instructions: Patient has a Brilinta coupon for a month free and reduced copays for 11 months. Discharge Disposition: HOME SELF-CARE
[2018-09-12] MEDS ORDERED: ATENOLOL 25 MG TAB PO SCH (09:00)
== END 2018-09-11 16:19 | disposition home or self-care (01) | DRG 246 ==
LOC: 2SICU 17:58
PROVIDERS: ADMIT Internal Medicine; ATTEND Internal Medicine
PROC: 4A023N7 Measurement of Cardiac Sampling and Pressure, Left Heart, Percutaneous Approach (ICD-10-PCS; 2018-09-07)
PROC: B2111ZZ Fluoroscopy of Multiple Coronary Arteries using Low Osmolar Contrast (ICD-10-PCS; 2018-09-07)
PROC: B2151ZZ Fluoroscopy of Left Heart using Low Osmolar Contrast (ICD-10-PCS; 2018-09-07)
PROC: 027035Z Dilation of Coronary Artery, One Artery with Two Drug-eluting Intraluminal Devices, Percutaneous Approach (ICD-10-PCS; principal; 2018-09-07 18:08)
PROC: 027135Z Dilation of Coronary Artery, Two Arteries with Two Drug-eluting Intraluminal Devices, Percutaneous Approach (ICD-10-PCS; 2018-09-10 12:10)
DX: I21.19 ST elevation (STEMI) myocardial infarction involving other coronary artery of inferior wall (principal); E87.1 Hypo-osmolality and hyponatremia; I44.2 Atrioventricular block, complete; D72.829 Elevated white blood cell count, unspecified; E11.65 Type 2 diabetes mellitus with hyperglycemia; I25.10 Atherosclerotic heart disease of native coronary artery without angina pectoris; I48.0 Paroxysmal atrial fibrillation; Z79.82 Long term (current) use of aspirin; Z82.49 Family history of ischemic heart disease and other diseases of the circulatory system
CPT/HCPCS: 71045; 80048; 80053; 80061; 82550; 82553; 83036; 83735; 84132; 84484; 85025; 85610; 93306; 93458; C1874